=== PATIENT | male | born 1960 | race African-American/Black ===

== ENCOUNTER 2017-05-29 23:50 | Emergency (ER) | payer OTHER ==
[~2017-05-29] VITALS: Ht 177.8 cm; Wt 95.3 kg
[2017-05-29] MEDS ORDERED: NOHOMEMEDICATIONS (23:58)
== END 2017-05-30 02:32 | disposition home or self-care (01) ==
LOC: ER 23:50
DX: S61.211A Laceration without foreign body of left index finger without damage to nail, initial encounter (principal); W26.8XXA Contact with other sharp object(s), not elsewhere classified, initial encounter; Y93.89 Activity, other specified; Y92.89 Other specified places as the place of occurrence of the external cause; Y99.8 Other external cause status

== ENCOUNTER 2017-08-19 16:16 | Emergency (ER) | payer OTHER ==
[~2017-08-19] VITALS: Ht 180.3 cm; Wt 95.7 kg
[~2017-08-19 16:16] MED LIST: NOHOMEMEDICATIONS
[2017-08-19 17:09] LABS: ABSOLUTE NEUTROPHILS 4.5 thou/uL (1.4-8.2); BASOPHILS 0.7 % (0.0-2.0); EOSINOPHILS 1.2 % (0.0-3.0); HEMATOCRIT 45.7 % (42.0-52.0); HEMOGLOBIN 14.7 gm/dL (14.0-18.0); LYMPHOCYTES 28.1 % (24.0-44.0); MCH 24.4 pg (26.0-34.0); MCHC 32.1 g/dL (28.0-37.0); MONOCYTES 6.8 % (1.0-8.0); PLATELET COUNT 172 thou/uL (150-400); POLYS 63.2 % (36.0-66.0); RBC 6.02 mil/uL (4.50-6.00); RDW 15.4 % (10.5-14.5); WBC 7.1 thou/uL (4.0-11.0)
[2017-08-19 17:17] LABS: CALCIUM 9.4 mg/dL (8.5-10.1); CREATININE 1.1 mg/dL (0.7-1.3); POTASSIUM 4.5 mmol/L (3.5-5.1)
[2017-08-19 17:23] LABS: ALBUMIN 3.8 g/dL (3.4-5.0); TOTAL BILIRUBIN 0.3 mg/dL (<0.1-1.0); TOTAL PROTEIN 7.3 g/dL (6.4-8.2)
[2017-08-19 17:40] LABS: URINE BILIRUBIN NEGATIVE (Negative); URINE BLOOD NEGATIVE (Negative); URINE CLARITY SL CLOUDY; URINE COLOR YELLOW; URINE GLUCOSE-RANDOM* NEGATIVE (Negative); URINE KETONES NEGATIVE (Negative); URINE LEUKOCYTES-REFLEX NEGATIVE (Negative); URINE NITRITE-REFLEX NEGATIVE (Negative); URINE PROTEIN (DIPSTICK) NEGATIVE (Negative)
[2017-08-19 18:15] VITALS: BP 113/69
== END 2017-08-19 18:16 | disposition home or self-care (01) ==
LOC: ER 16:16
PROVIDERS: Physician Assistant
DX: E86.9 Volume depletion, unspecified (principal); S30.861A Insect bite (nonvenomous) of abdominal wall, initial encounter; R10.9 Unspecified abdominal pain; F17.210 Nicotine dependence, cigarettes, uncomplicated; W57.XXXA Bitten or stung by nonvenomous insect and other nonvenomous arthropods, initial encounter; Y93.89 Activity, other specified; Y92.89 Other specified places as the place of occurrence of the external cause; Y99.8 Other external cause status

== ENCOUNTER 2018-04-17 15:33 | Emergency (ER) | payer OTHER ==
[~2018-04-17] VITALS: Ht 177.8 cm; Wt 90.7 kg
[2018-04-17 16:11] LABS: URINE BILIRUBIN NEGATIVE (Negative); URINE CLARITY CLEAR; URINE COLOR YELLOW; URINE GLUCOSE-RANDOM* NEGATIVE (Negative); URINE KETONES NEGATIVE (Negative); URINE PROTEIN (DIPSTICK) NEGATIVE (Negative); URINE SPECIFIC GRAVITY >= 1.030 (1.005-1.035)
[2018-04-17 16:12] LABS: URINE BLOOD NEGATIVE (Negative); URINE LEUKOCYTES-REFLEX NEGATIVE (Negative); URINE NITRITE-REFLEX NEGATIVE (Negative); URINE UROBILINOGEN 0.2 E.U./dl (0.2-1.0)
[2018-04-17] MEDS ORDERED: LEVAQUIN 500 M500 M1 PO (16:55)
[2018-04-17 16:58] VITALS: BP 132/74
== END 2018-04-17 16:59 | disposition home or self-care (01) ==
LOC: ER 15:33
PROVIDERS: Emergency Medicine
DX: N45.1 Epididymitis (principal); F17.210 Nicotine dependence, cigarettes, uncomplicated

== ENCOUNTER 2018-06-24 23:23 | Emergency (ER) | payer OTHER ==
[~2018-06-24] VITALS: Ht 177.8 cm; Wt 90.7 kg
[~2018-06-24 23:23] MED LIST changes: +LEVAQUIN 500 M500 M1 PO
[2018-06-25] MEDS ORDERED: NORCO 5-325 TA1 EACH PO (03:15)
[2018-06-25] MEDS ORDERED: AUGMENTIN 875-1 EACH PO (03:17)
[2018-06-25 03:41] VITALS: BP 122/70
== END 2018-06-25 03:50 | disposition home or self-care (01) ==
LOC: ER 23:23
DX: S62.242A Displaced fracture of shaft of first metacarpal bone, left hand, initial encounter for closed fracture (principal); F17.210 Nicotine dependence, cigarettes, uncomplicated; Y04.8XXA Assault by other bodily force, initial encounter; Y93.89 Activity, other specified; Y92.89 Other specified places as the place of occurrence of the external cause; Y99.8 Other external cause status

== ENCOUNTER 2018-08-04 22:40 | Emergency (ER) | payer OTHER ==
[~2018-08-04] VITALS: Ht 177.8 cm; Wt 90.7 kg
[~2018-08-04 22:40] MED LIST changes: +AUGMENTIN 875-1 EACH PO; +NORCO 5-325 TA1 EACH PO
[2018-08-04] MEDS ORDERED: NORCO 5-325 TA1 EACH PO (23:58)
[2018-08-05 01:35] VITALS: BP 130/72
== END 2018-08-05 01:35 | disposition home or self-care (01) ==
LOC: ER 22:40
DX: S62.317A Displaced fracture of base of fifth metacarpal bone, left hand, initial encounter for closed fracture (principal); F17.210 Nicotine dependence, cigarettes, uncomplicated; W22.8XXA Striking against or struck by other objects, initial encounter; Y93.89 Activity, other specified; Y92.89 Other specified places as the place of occurrence of the external cause; Y99.8 Other external cause status

== ENCOUNTER 2018-11-12 21:35 | Emergency (ER) | payer OTHER ==
[~2018-11-12] VITALS: Ht 180.3 cm; Wt 90.7 kg
[2018-11-12 21:38] VITALS: BP 132/78
[2018-11-12] MEDS ORDERED: MOBIC15 MG PO (23:05)
== END 2018-11-12 23:00 | disposition home or self-care (01) ==
LOC: ER 21:35
DX: S82.292A Other fracture of shaft of left tibia, initial encounter for closed fracture (principal); F17.210 Nicotine dependence, cigarettes, uncomplicated; X58.XXXA Exposure to other specified factors, initial encounter; Y93.89 Activity, other specified; Y92.89 Other specified places as the place of occurrence of the external cause; Y99.8 Other external cause status

== ENCOUNTER 2019-02-03 08:31 | Emergency (ER) | payer OTHER ==
[~2019-02-03] VITALS: Ht 177.8 cm; Wt 90.7 kg
[~2019-02-03 08:31] MED LIST changes: +MOBIC15 MG PO
[2019-02-03] MEDS ORDERED: TRAMADOL 50 MG50 MG PO (09:40)
[2019-02-03] MEDS ORDERED: NAPROSYN500 MG PO (09:40)
[2019-02-03 09:51] VITALS: BP 104/80
== END 2019-02-03 09:56 | disposition home or self-care (01) ==
LOC: ER 08:31
DX: S90.31XA Contusion of right foot, initial encounter (principal); F17.210 Nicotine dependence, cigarettes, uncomplicated; W31.89XA Contact with other specified machinery, initial encounter; Y93.89 Activity, other specified; Y92.89 Other specified places as the place of occurrence of the external cause; Y99.0 Civilian activity done for income or pay

== ENCOUNTER 2019-03-02 15:43 | Emergency (ER) | payer OTHER ==
[~2019-03-02] VITALS: Ht 177.8 cm; Wt 92.5 kg
[~2019-03-02 15:43] MED LIST changes: +NAPROSYN500 MG PO; +TRAMADOL 50 MG50 MG PO
[2019-03-02 18:42] VITALS: BP 123/78
== END 2019-03-02 18:44 | disposition short-term general hospital (02) ==
LOC: ER 15:43
DX: S05.02XA Injury of conjunctiva and corneal abrasion without foreign body, left eye, initial encounter (principal); F17.210 Nicotine dependence, cigarettes, uncomplicated; Z90.89 Acquired absence of other organs; W22.8XXA Striking against or struck by other objects, initial encounter; Y93.89 Activity, other specified; Y92.89 Other specified places as the place of occurrence of the external cause; Y99.9 Unspecified external cause status

== ENCOUNTER 2019-11-02 19:24 | Emergency (ER) | payer OTHER ==
[~2019-11-02] VITALS: Ht 177.8 cm; Wt 84.8 kg
[2019-11-02 21:00] LABS: ABSOLUTE NEUTROPHILS 3.7 thou/uL (1.4-8.2); BASOPHILS 0.5 % (0.0-2.0); EOSINOPHILS 1.1 % (0.0-3.0); HEMATOCRIT 44.7 % (42.0-52.0); HEMOGLOBIN 14.5 gm/dL (14.0-18.0); LYMPHOCYTES 32.9 % (24.0-44.0); MCH 24.9 pg (26.0-34.0); MCHC 32.4 g/dL (28.0-37.0); MONOCYTES 6.9 % (1.0-8.0); PLATELET COUNT 183 thou/uL (150-400); POLYS 58.6 % (36.0-66.0); RBC 5.81 mil/uL (4.50-6.00); RDW 15.2 % (10.5-14.5); WBC 6.4 thou/uL (4.0-11.0)
[2019-11-02 21:09] LABS: ANION GAP 7 mmol/L (7-16); BUN 17 mg/dL (7-18); CALCIUM 8.6 mg/dL (8.5-10.1); CHLORIDE 106 mmol/L (98-107); CO2 28 mmol/L (21-32); GLUCOSE 95 mg/dL (74-106); SODIUM 141 mmol/L (136-145)
[2019-11-02 21:19] LABS: ALBUMIN 3.7 g/dL (3.4-5.0); DIRECT BILIRUBIN < 0.1 mg/dL (<0.1-0.2); SGOT 27 U/L (15-37); SGPT 28 U/L (30-65); TOTAL BILIRUBIN 0.5 mg/dL (0.2-1.0); TOTAL PROTEIN 6.8 g/dL (6.4-8.2); TROPONIN-I <0.06 ng/mL (<0.06)
[2019-11-02 22:06] LABS: URINE BILIRUBIN NEGATIVE (Negative); URINE BLOOD NEGATIVE (Negative); URINE CLARITY CLEAR; URINE COLOR YELLOW; URINE GLUCOSE-RANDOM* NEGATIVE (Negative); URINE KETONES NEGATIVE (Negative); URINE LEUKOCYTES-REFLEX NEGATIVE (Negative); URINE NITRITE-REFLEX NEGATIVE (Negative); URINE PROTEIN (DIPSTICK) NEGATIVE (Negative); URINE SPECIFIC GRAVITY >= 1.030 (1.005-1.035); URINE UROBILINOGEN 0.2 E.U./dl (0.2-1.0)
[2019-11-02 23:10] VITALS: BP 131/81
--- NOTE | 2019-11-03 09:05 | EKG ---
[facility] [place] [address] ELECTROCARDIOGRAM REPORT Name: NEREYDA GARCÍA Room #: DEP [facility]#: [id number] Admission: 11/02/19 Attend Phys: Discharge: 11/02/19 Date of : 60 Report #: [id number] THIS REPORT FOR: cc: [place] - Myra family physician/PCP [place] - No family physician/PCP Jay Jay Tinoe MD [facility] THIS REPORT FOR: //name// [facility] ED Test Date: 2019-11-02 Test Time: 19:39:41 Pat Name: NEREYDA GARCÍA Department: Room: Gender: Equal Opportunity Officer: KAYLIE : 1960 Requested By: Cata Levin Order Number: [id number] MD: Jay Jay Tineo Measurements Intervals [place] Rate: 74 P: 56 OR: 166 QRS: 66 QRSD: 85 T: 35 QT: 377 QTc: 419 Interpretive Statements Sinus rhythm Normal tracing No previous ECG available for comparison Electronically Signed On 11-03-2019 9:05:29 CDT by Jay Jay Tineo [email or web address] <ELECTRONICALLY SIGNED> By: Jay Jay Tineo MD, [facility] 11/03/19904 38 38 Jay Jay Tineo MD, [facility] /EPI
== END 2019-11-02 23:11 | disposition home or self-care (01) ==
LOC: ER 19:24
PROVIDERS: Emergency Medicine
DX: R53.1 Weakness (principal); R42 Dizziness and giddiness; R11.0 Nausea; R06.02 Shortness of breath; R61 Generalized hyperhidrosis; R51 Headache; F17.210 Nicotine dependence, cigarettes, uncomplicated; Z98.890 Other specified postprocedural states

== ENCOUNTER 2019-11-17 12:50 | Emergency (ER) | payer OTHER ==
[~2019-11-17] VITALS: Ht 180.3 cm; Wt 86.2 kg
[2019-11-17 14:45] VITALS: BP 122/64
[2019-11-17] MEDS ORDERED: NAPROSYN500 MG PO (15:09)
== END 2019-11-17 13:45 | disposition home or self-care (01) ==
LOC: ER 12:50
DX: S93.601A Unspecified sprain of right foot, initial encounter (principal); M19.071 Primary osteoarthritis, right ankle and foot; F17.210 Nicotine dependence, cigarettes, uncomplicated; Z98.890 Other specified postprocedural states; X50.9XXA Other and unspecified overexertion or strenuous movements or postures, initial encounter; Y93.01 Activity, walking, marching and hiking; Y92.89 Other specified places as the place of occurrence of the external cause; Y99.8 Other external cause status

== ENCOUNTER 2020-09-06 16:07 | Emergency (ER) | payer OTHER ==
[~2020-09-06] VITALS: Ht 177.8 cm; Wt 86.2 kg
[2020-09-06 16:18] VITALS: BP 117/65
[2020-09-06] MEDS ORDERED: CEPHALEXIN500 MG PO (16:51)
[2020-09-06] MEDS ORDERED: SSD CREAM 1% 5050 GM TOP (16:51)
== END 2020-09-06 17:35 | disposition home or self-care (01) ==
LOC: ER 16:07
DX: T23.022A Burn of unspecified degree of single left finger (nail) except thumb, initial encounter (principal); T23.021A Burn of unspecified degree of single right finger (nail) except thumb, initial encounter; F17.210 Nicotine dependence, cigarettes, uncomplicated; X08.8XXA Exposure to other specified smoke, fire and flames, initial encounter; Y93.89 Activity, other specified; Y92.89 Other specified places as the place of occurrence of the external cause; Y99.8 Other external cause status

== ENCOUNTER 2020-10-16 21:31 | Emergency (ER) | payer OTHER ==
[~2020-10-16] VITALS: Ht 180.3 cm; Wt 86.2 kg
[~2020-10-16 21:31] MED LIST changes: +CEPHALEXIN500 MG PO; +SSD CREAM 1% 5050 GM TOP
[2020-10-16 21:55] VITALS: BP 128/67
== END 2020-10-16 22:52 | disposition home or self-care (01) ==
LOC: ER 21:31
DX: S39.012A Strain of muscle, fascia and tendon of lower back, initial encounter (principal); F17.210 Nicotine dependence, cigarettes, uncomplicated; X50.0XXA Overexertion from strenuous movement or load, initial encounter; Y93.89 Activity, other specified; Y92.89 Other specified places as the place of occurrence of the external cause; Y99.8 Other external cause status

== ENCOUNTER 2020-10-19 17:49 | Emergency (ER) | payer OTHER ==
[~2020-10-19] VITALS: Ht 177.8 cm; Wt 90.7 kg
[2020-10-19] MEDS ORDERED: NORCO5 PO (20:07)
[2020-10-19] MEDS ORDERED: FLEXERIL PO (20:07)
[2020-10-19] MEDS ORDERED: PREDNISONE50 MG PO (20:07)
[2020-10-19 20:17] VITALS: BP 131/89
== END 2020-10-19 20:17 | disposition home or self-care (01) ==
LOC: ER 17:49
DX: S39.012A Strain of muscle, fascia and tendon of lower back, initial encounter (principal); M51.26 Other intervertebral disc displacement, lumbar region; F17.210 Nicotine dependence, cigarettes, uncomplicated; V89.2XXA Person injured in unspecified motor-vehicle accident, traffic, initial encounter; Y93.89 Activity, other specified; Y92.89 Other specified places as the place of occurrence of the external cause; Y99.8 Other external cause status

== ENCOUNTER 2020-12-12 14:50 | Emergency (ER) | payer OTHER ==
[~2020-12-12] VITALS: Ht 177.8 cm; Wt 90.7 kg
[~2020-12-12 14:50] MED LIST changes: +FLEXERIL PO; +NORCO5 PO; +PREDNISONE50 MG PO
[2020-12-12 14:52] VITALS: BP 138/84
== END 2020-12-12 14:58 | disposition home or self-care (01) ==
LOC: ER 14:50
PROVIDERS: Nurse Practitioner
DX: U07.1 COVID-19 (principal); F17.210 Nicotine dependence, cigarettes, uncomplicated

== ENCOUNTER 2021-02-06 11:50 | Emergency (ER) | payer OTHER ==
[~2021-02-06] VITALS: Ht 180.3 cm; Wt 93.0 kg
[2021-02-06] MEDS ORDERED: FLEXERIL PO (12:42)
[2021-02-06] MEDS ORDERED: NABUMETONE 500500 M2 PO (12:42)
[2021-02-06] MEDS ORDERED: METHOCARBAMOL500 M2 PO (14:11)
[2021-02-06] MEDS ORDERED: MEDROLDOSEPACK PO (14:11)
[2021-02-06] MEDS ORDERED: AUGMENTIN 875-1 EACH PO (14:11)
[2021-02-06 14:24] VITALS: BP 151/75
--- NOTE | 2021-02-06 15:45 | EKG ---
[place] [address] [facility] [place] [address] ELECTROCARDIOGRAM REPORT Name: RAQUELNEREYDA A Room #: [facility]P [facility] [id number] Admission: 02/06/21 Attend Phys: Discharge: 02/06/21 Date of : 60 Report #: [id number] [facility] ED Test Date: 2021-02-06 Test Time: 13:15:13 Pat Name: NEREYDA GARCÍA Department: Room: Gender: Qual Research Manager: JOSE ALFREDO : 1960 Requested By: Nina Santana Order Number: [id number] MD: Andrea Obregon Measurements Intervals [place] Rate: 67 P: 40 [place]: 161 QRS: 75 QRSD: 89 T: 46 QT: 380 QTc: 401 Interpretive Statements Sinus rhythm Compared to ECG 11/02/2019 19:39:41 No significant changes Electronically Signed On 02-06-2021 15:45:21 [employer] by Andrea Obregon [email or web address] <ELECTRONICALLY SIGNED> By: Andrea Obregon MD, [facility] 02/06/21 1545 1315 1315 Andrea Obregon MD, [facility] /EPI
== END 2021-02-06 14:25 | disposition home or self-care (01) ==
LOC: ER 11:50
DX: J01.10 Acute frontal sinusitis, unspecified (principal); J01.00 Acute maxillary sinusitis, unspecified; M54.16 Radiculopathy, lumbar region; F17.210 Nicotine dependence, cigarettes, uncomplicated; Z98.890 Other specified postprocedural states; Z79.891 Long term (current) use of opiate analgesic; Z79.899 Other long term (current) drug therapy

== ENCOUNTER 2021-03-06 23:58 | Emergency (ER) | payer OTHER ==
[~2021-03-06] VITALS: Ht 180.3 cm; Wt 95.3 kg
[~2021-03-06 23:58] MED LIST changes: +MEDROLDOSEPACK PO; +METHOCARBAMOL500 M2 PO; +NABUMETONE 500500 M2 PO
[2021-03-06 23:59] VITALS: BP 133/86
[2021-03-07] MEDS ORDERED: IBUPROFEN 800800 MG PO (02:47)
== END 2021-03-07 03:04 | disposition home or self-care (01) ==
LOC: ER 23:58
DX: M54.50 Low back pain, unspecified (principal); F17.210 Nicotine dependence, cigarettes, uncomplicated; Z90.89 Acquired absence of other organs; X50.0XXA Overexertion from strenuous movement or load, initial encounter; Y93.89 Activity, other specified; Y92.69 Other specified industrial and construction area as the place of occurrence of the external cause; Y99.9 Unspecified external cause status

== ENCOUNTER 2021-04-10 17:01 | Emergency (ER) | payer OTHER ==
[~2021-04-10 17:01] MED LIST changes: +IBUPROFEN 800800 MG PO
== END 2021-04-10 17:19 | disposition left against medical advice (07) ==
LOC: ER 17:01
DX: M54.9 Dorsalgia, unspecified (principal); Z53.21 Procedure and treatment not carried out due to patient leaving prior to being seen by health care provider

== ENCOUNTER 2021-05-07 17:38 | Emergency (ER) | payer OTHER ==
[~2021-05-07] VITALS: Ht 180.3 cm; Wt 90.7 kg
[2021-05-07 17:38] VITALS: BP 113/84
== END 2021-05-07 19:00 | disposition home or self-care (01) ==
LOC: ER 17:38
DX: R11.2 Nausea with vomiting, unspecified (principal); Z20.822 Contact with and (suspected) exposure to COVID-19; R19.7 Diarrhea, unspecified; M79.10 Myalgia, unspecified site; F17.210 Nicotine dependence, cigarettes, uncomplicated; Z90.89 Acquired absence of other organs; Z98.890 Other specified postprocedural states; Z79.899 Other long term (current) drug therapy